=== PATIENT | male | born 1955 | race Caucasian/White ===

== ENCOUNTER 2017-05-23 09:21 | Day surgery (SDC) | payer BC, OTHER ==
[2017-05-23] MEDS: NS 1,000 ML IV (09:30)
[2017-05-23] MEDS ORDERED: PROPOFOL 500 MG/50 ML VIAL As Ordered (10:02)
[2017-05-23] MEDS ORDERED: LIDOCAINE 2% INJ 100 MG/5 ML SDV (FOR ANES.) As Ordered (10:02)
== END 2017-05-23 10:53 | disposition home or self-care (01) ==
LOC: M OPP 09:21
DX: Z12.11 Encounter for screening for malignant neoplasm of colon (principal); K57.30 Diverticulosis of large intestine without perforation or abscess without bleeding; K64.0 First degree hemorrhoids; I10 Essential (primary) hypertension; E78.00 Pure hypercholesterolemia, unspecified; Z79.82 Long term (current) use of aspirin; Z79.899 Other long term (current) drug therapy
CPT/HCPCS: 45378

== ENCOUNTER → 2019-11-12 | Outpatient (REF) | payer BC, OTHER ==
[~2019-11-12] MED LIST: ACET65TA PO; ASPI325T PO; BISA10SU2 RE; CLAR5CHW OR; CLAR5TAB PO; COLA100C2 OR; FISH100049 PO; HYDR25TA6 OR; LIPI10TA OR; LISI10TA4 OR; MILKSUS OR; PRAV40TA PO; SENO8.6T5 OR; famvir PO
== END ==
LOC: M LAB REF 16:30
PROVIDERS: ATTEND Physician Assistant
DX: C44.229 Squamous cell carcinoma of skin of left ear and external auricular canal (principal); L57.0 Actinic keratosis

== ENCOUNTER → 2020-08-18 | Outpatient (REF) ==
--- NOTE | 2020-08-18 09:45 | REPPI ---
INDICATION: DISABILITY DIAGNOSIS DETERMINATION COMPARISON: 12/14/2010 TECHNIQUE: PA and lateral. FINDINGS: The mediastinum and cardiac silhouette are normal. The lung pham are clear and without acute consolidation, effusion, or pneumothorax. The skeletal structures demonstrate degenerative changes to the thoracic spine including osteophytosis and minimal endplate sclerosis/disc space narrowing. IMPRESSION: No acute cardiopulmonary process. <Electronically signed by Devin Wright > 08/18/20 [id number]
== END ==
LOC: M PLAIMG 08:45
PROVIDERS: ATTEND Internal Medicine
DX: Z00.00 Encounter for general adult medical examination without abnormal findings (principal)

== ENCOUNTER 2020-12-02 07:25 | Emergency (ER) | payer BC, OTHER ==
[~2020-12-02] VITALS: Ht 175.3 cm; Wt 85.6 kg
[2020-12-02] MEDS ORDERED: MONT10TA10 (07:39)
[2020-12-02] MEDS ORDERED: ALLE180T33 PO (07:39)
--- NOTE | 2020-12-02 08:20 | REP ---
INDICATION: trauma. COMPARISON: None. TECHNIQUE: Three views of the right did shoulder are provided. FINDINGS: The right glenohumeral and acromioclavicular joints are normally aligned. There is inferior glenoid spurring and there is superior inferior osteoarthritic spurring at the acromioclavicular joint. No fracture or subluxation is seen. IMPRESSION: Osteoarthritic changes. No fracture or subluxation seen. Otherwise negative. <Electronically signed by Silver Mae > 12/02/20 0891
[2020-12-02] MEDS ORDERED: ULTR50TA8 PO (09:10)
[2020-12-02 09:35] VITALS: BP 152/78
== END 2020-12-02 09:45 | disposition home or self-care (01) ==
LOC: M ED 07:25
DX: S46.211A Strain of muscle, fascia and tendon of other parts of biceps, right arm, initial encounter (principal); X58.XXXA Exposure to other specified factors, initial encounter; Y92.018 Other place in single-family (private) house as the place of occurrence of the external cause; I10 Essential (primary) hypertension; J45.909 Unspecified asthma, uncomplicated; E78.5 Hyperlipidemia, unspecified; K21.9 Gastro-esophageal reflux disease without esophagitis; Z79.899 Other long term (current) drug therapy; Z79.82 Long term (current) use of aspirin

== ENCOUNTER → 2022-01-12 | Outpatient (CLI) | payer BC, OTHER ==
[~2022-01-12] MED LIST changes: +ALLE180T33 PO; -CLAR5TAB PO; +DESL5TAB28 PO; +MONT10TA97; +ULTR50TA8 PO
== END ==
LOC: M RAD 10:18
PROVIDERS: ATTEND Nurse Practitioner Adult Health
DX: I65.29 Occlusion and stenosis of unspecified carotid artery (principal)

== ENCOUNTER → 2024-03-29 | Outpatient (CLI) | payer MEDICARE, BC, OTHER ==
[~2024-03-29] MED LIST changes: -DESL5TAB28 PO; +DESL5TAB30 PO
== END ==
LOC: M RAD 14:30
PROVIDERS: ATTEND Nurse Practitioner Family
DX: I65.21 Occlusion and stenosis of right carotid artery (principal)

== ENCOUNTER → 2024-05-02 | Outpatient (CLI) | payer MEDICARE, BC, OTHER ==
[~2024-05-02] MED LIST changes: +ISOVUE-370 76% 100ML VIAL As Ordered ONE
== END ==
LOC: M RAD 08:41
PROVIDERS: ATTEND Nurse Practitioner Family
DX: G45.8 Other transient cerebral ischemic attacks and related syndromes (principal)
CPT/HCPCS: 71275; Q9967